=== PATIENT | female | born 1965 | race Caucasian/White ===

== ENCOUNTER 2016-12-09 08:50 | Emergency (ER) | payer MEDICAID ==
[2016-12-09] MEDS ORDERED: KETOROLAC 60 MG/2 ML VIAL IM STA (10:17)
[2016-12-09] MEDS ORDERED: ORPHENADRINE 30 MG/ML 2 ML VIAL IM STA (10:17)
--- NOTE | 2016-12-09 10:23 | ED ---
General Adult HPI - General Chief complaint: Back Pain/Injury Stated complaint: Back pain Time Seen by Provider: 12/09/16 10:00 Source: patient, RN notes reviewed Mode of arrival: ambulatory Limitations: no limitations - History of Present Illness Initial comments: This is a 51-year-old female who presents to the emergency department complaining of lower back pain. Patient states she went to get out of her car today and twisted and then she started having back pain across the lower back both right and left. Patient states she has had this before. Patient denies any numbness weakness. Patient denies any problems lifting her legs. Patient states bending is when the lower back hurts the most. Patient has no urinary symptoms at all. Patient Her back lifting either leg to 90 without causing any problems. Patient denies any blunt trauma or injuries patient denies any heavy lifting that she knows of however her job entails some lifting. - Related Data Home Medications Medication Instructions Recorded Confirmed Fluticasone/Vilanterol [Breo 1 puff INHALATION RT-DAILY 12/09/16 12/09/16 Ellipta 200-25 Mcg INH] Loratadine [Claritin] 10 mg PO DAILY PRN 12/09/16 12/09/16 Montelukast [Singulair] 10 mg PO DAILY 12/09/16 12/09/16 amLODIPine BESYLATE/BENAZEPRIL 1 cap PO DAILY 12/09/16 12/09/16 [amLODIPine BESYLATE/BENAZEPRIL 5-10 mg] Previous Rx's Medication Instructions Recorded Ibuprofen [Motrin] 600 mg PO Q6HR PRN #20 tab 12/09/16 Orphenadrine [Norflex] 100 mg PO Q12H #20 tablet.er 12/09/16 Allergies Allergy/AdvReac Type Severity Reaction Status Date / Time No Known Allergies Allergy Verified 12/09/16 10:04 Review of Systems ROS Statement: Those systems with pertinent positive or pertinent negative responses have been documented in the HPI. ROS Other: All systems not noted in ROS Statement are negative. Past Medical History Past Medical History: Asthma History of Any Multi-Drug Resistant Organisms: None Reported Past Surgical History: Hysterectomy, Tubal Ligation Past Psychological History: No Psychological Hx Reported Smoking Status: Current every day smoker Past Alcohol Use History: Occasional Past Drug Use History: None Reported General Exam - General Exam Comments Initial Comments: GENERAL Patient is well-developed and well-nourished. Patient is in mild distress. EYES Patient's pupils are equal and round. Extraocular motion is intact SKIN Unremarkable NEURO The patient is alert and oriented 3 PYSCH Patient has normal interpersonal interactions. MUSCULOSKELETAL Straight leg test was negative bilaterally. Patient had no numbness or weakness. Patient full range of motion of her extremities. On palpation of her lower back there was minimal tenderness bilaterally with palpation Limitations: no limitations Course Vital Signs 12/09/16 09:11 Temperature 98.0 F Pulse Rate 78 Respiratory 20 Rate Blood Pressure 129/69 O2 Sat by Pulse 98 Oximetry Medical Decision Making - Medical Decision Making I went back into the room patient was already feeling better wanted to be discharged home. Disposition Clinical Impression: Lumbar strain Disposition: HOME SELF-CARE Condition: Good Instructions: Low Back Strain (ED) Prescriptions: Ibuprofen [Motrin] 600 mg PO Q6HR PRN #20 tab PRN Reason: For pain Orphenadrine [Norflex] 100 mg PO Q12H #20 tablet.er Referrals: Jarrod Neely DO [Primary Care Provider] - 1-2 days Time of Disposition: 11:19
[2016-12-09 11:26] VITALS: BP 148/70; PULSE 72; RESP 16; TEMP 97.7
== END 2016-12-09 11:25 | disposition home or self-care (01) ==
LOC: EC 08:50
DX: S39.012A Strain of muscle, fascia and tendon of lower back, initial encounter (principal); J45.909 Unspecified asthma, uncomplicated; F17.200 Nicotine dependence, unspecified, uncomplicated; Z79.51 Long term (current) use of inhaled steroids; Z79.899 Other long term (current) drug therapy; X50.1XXA Overexertion from prolonged static or awkward postures, initial encounter
CPT/HCPCS: 99283; 96372 ×2; J2360; J1885

== ENCOUNTER 2016-12-27 06:49 | Emergency (ER) | payer MEDICAID ==
[2016-12-27] MEDS ORDERED: KETOROLAC 60 MG/2 ML VIAL IM STA (07:59)
--- NOTE | 2016-12-27 08:09 | ED ---
Back Pain HPI - General Chief Complaint: Back Pain/Injury Stated Complaint: Back Pain Time Seen by Provider: 12/27/16 07:52 Source: patient Limitations: no limitations - History of Present Illness Initial Comments: This 51-year-old white female presents with a complaint of some low back pain. She states that initially occurred 3-4 weeks ago but then seemed to resolve. It reoccurred yesterday. She states that she has had decreased sleep this past evening due to the pain. It is worse with certain movements. It did radiate into her right hip. She states that it is in her bilateral lower back. She initially was diagnosed with a lumbar strain. She apparently was prescribed Motrin as well as Flexeril. She has not filled the Motrin as of yet. She denies any injury or trauma. She also followed up with her primary doctor they felt as though it was a lumbar strain. She's been trying back exercises. She denies any problems with her bowels or bladder. She denies any fevers or chills. No other complaints or modifying factors. - Related Data Home Medications Medication Instructions Recorded Confirmed Fluticasone/Vilanterol [Breo 1 puff INHALATION RT-DAILY 12/09/16 12/27/16 Ellipta 200-25 Mcg INH] Loratadine [Claritin] 10 mg PO DAILY PRN 12/09/16 12/27/16 Montelukast [Singulair] 10 mg PO DAILY 12/09/16 12/27/16 amLODIPine BESYLATE/BENAZEPRIL 1 cap PO DAILY 12/09/16 12/27/16 [amLODIPine BESYLATE/BENAZEPRIL 5-10 mg] Previous Rx's Medication Instructions Recorded Ibuprofen [Motrin] 600 mg PO Q6HR PRN #20 tab 12/09/16 Orphenadrine [Norflex] 100 mg PO Q12H #20 tablet.er 12/09/16 Allergies Allergy/AdvReac Type Severity Reaction Status Date / Time No Known Allergies Allergy Verified 12/27/16 07:04 Review of Systems ROS Statement: Those systems with pertinent positive or pertinent negative responses have been documented in the HPI. ROS Other: All systems not noted in ROS Statement are negative. Past Medical History Past Medical History: Asthma Additional Past Medical History / Comment(s): spinal meningitis as History of Any Multi-Drug Resistant Organisms: None Reported Past Surgical History: Hysterectomy, Tubal Ligation Past Psychological History: No Psychological Hx Reported Smoking Status: Current every day smoker Past Alcohol Use History: Occasional Past Drug Use History: None Reported General Exam Limitations: no limitations General appearance: alert, in no apparent distress Extremities exam: Present: normal inspection, full ROM. Absent: tenderness Back exam: Present: normal inspection, tenderness (There is tenderness noted to the bilateral paralumbar musculature. There is no tenderness over the vertebrae. There is pain with certain movements). Absent: CVA tenderness (R) Neurological exam: Present: alert, oriented X3, reflexes normal. Absent: motor sensory deficit Psychiatric exam: Present: normal affect, normal mood Skin exam: Present: intact. Absent: rash Course Vital Signs 12/27/16 07:01 Temperature 98.4 F Pulse Rate 84 Respiratory 16 Rate Blood Pressure 160/76 O2 Sat by Pulse 97 Oximetry Medical Decision Making - Medical Decision Making The patient was seen and examined. She received Toradol 60 mg IM. An x-ray was taken of the lumbar spine. The x-ray showed some mild degenerative changes but no other acute processes. She has not really taken the Flexeril or Motrin 800 as of yet. She is instructed to start taking the medication. She may need an MRI scan as recommended through primary doctor. He states that she will follow-up with him on Thursday. Disposition Clinical Impression: Low back pain, Arthritis, lumbar spine Disposition: HOME SELF-CARE Condition: Good Instructions: Acute Low Back Pain (ED) Additional Instructions: Please take the Motrin and Flexeril as previously prescribed. Referrals: Jarrod Neely DO [Primary Care Provider] - 1-2 days Time of Disposition: 09:07
--- NOTE | 2016-12-27 09:00 | XR ---
EXAMINATION TYPE: XR lumbar spine 2 or 3V DATE OF EXAM ORDERED: 12/27/2016 8:42 AM HISTORY: Pain. COMPARISON: Previous study dated 10/16/2014. FINDINGS: Vertebral body height and alignment are maintained. There is no spondylolysis or spondylol isthesis. There is disc space loss at L5-S1 and to a lesser extent L3-4 and L4-5. There is mild hyper trophic spondylosis at L3-4. The pedicles are intact. IMPRESSION: 1. NO ACUTE OSSEOUS LESION. 2. MILD DEGENERATIVE CHANGE.
[2016-12-27 09:15] VITALS: BP 134/71; PULSE 81; RESP 18; TEMP 97.6
== END 2016-12-27 09:15 | disposition home or self-care (01) ==
LOC: EC 06:49
DX: M46.86 Other specified inflammatory spondylopathies, lumbar region (principal); J45.909 Unspecified asthma, uncomplicated; F17.200 Nicotine dependence, unspecified, uncomplicated; Z79.899 Other long term (current) drug therapy
CPT/HCPCS: 72100; 99283; 96372; J1885

== ENCOUNTER 2017-01-12 11:29 | Emergency (ER) | payer MEDICAID ==
[2017-01-12 12:12] VITALS: BP 128/67; PULSE 82; RESP 18
[2017-01-12 12:35] VITALS: TEMP 98.8
--- NOTE | 2017-01-12 12:35 | ED ---
ENT HPI - General Chief complaint: ENT Stated complaint: POSS NOSE Fx Time Seen by Provider: 01/12/17 12:19 Source: patient, RN notes reviewed Mode of arrival: ambulatory - History of Present Illness Initial comments: Patient is a 51-year-old female chief complaint of falling after tripping over a rug 4 days ago. Patient reports that she landed face first her face hit her floor. Patient reports that she's had some significant swelling over her nose and underneath her eyes. Patient reports that she has chronic sinus congestion and ALLERGY problems. Patient denies any neck pain or loss of consciousness after the injury. Patient reports that she is concerned that she may have possible nasal fracture needs to be seen by ENT specialist. Patient denies any headache, chest pain, shortness of breath, difficulty breathing through the nose. - Related Data Home Medications Medication Instructions Recorded Confirmed Fluticasone/Vilanterol [Breo 1 puff INHALATION RT-DAILY 12/09/16 12/27/16 Ellipta 200-25 Mcg INH] Loratadine [Claritin] 10 mg PO DAILY PRN 12/09/16 12/27/16 Montelukast [Singulair] 10 mg PO DAILY 12/09/16 12/27/16 amLODIPine BESYLATE/BENAZEPRIL 1 cap PO DAILY 12/09/16 12/27/16 [amLODIPine BESYLATE/BENAZEPRIL 5-10 mg] Previous Rx's Medication Instructions Recorded Ibuprofen [Motrin] 600 mg PO Q6HR PRN #20 tab 12/09/16 Orphenadrine [Norflex] 100 mg PO Q12H #20 tablet.er 12/09/16 Amoxic-Pot Clav 875-125Mg 1 tab PO Q12HR #20 tablet 01/12/17 [Augmentin 875-125] Allergies Allergy/AdvReac Type Severity Reaction Status Date / Time No Known Allergies Allergy Verified 01/12/17 12:12 Review of Systems ROS Statement: Those systems with pertinent positive or pertinent negative responses have been documented in the HPI. ROS Other: All systems not noted in ROS Statement are negative. Past Medical History Past Medical History: Asthma Additional Past Medical History / Comment(s): spinal meningitis as History of Any Multi-Drug Resistant Organisms: None Reported Past Surgical History: Hysterectomy, Tubal Ligation Past Psychological History: No Psychological Hx Reported Smoking Status: Current every day smoker Past Alcohol Use History: Occasional Past Drug Use History: None Reported General Exam - General Exam Comments Initial Comments: Pleasant 51-year-old female. No distress. General appearance: alert, in no apparent distress Head exam: Present: atraumatic, normocephalic, normal inspection Eye exam: Present: normal appearance, PERRL, EOMI. Absent: scleral icterus, conjunctival injection, periorbital swelling ENT exam: Present: normal oropharynx, mucous membranes moist, TM's normal bilaterally. Absent: normal exam (Swelling and deformed nasal bridge. bruising underneath bilateral eyes. ) Neck exam: Present: normal inspection. Absent: tenderness, meningismus, lymphadenopathy Respiratory exam: Present: normal lung sounds bilaterally. Absent: respiratory distress, wheezes, rales, rhonchi, stridor Cardiovascular Exam: Present: regular rate, normal rhythm, normal heart sounds. Absent: systolic murmur, diastolic murmur, rubs, gallop, clicks GI/Abdominal exam: Present: soft, normal bowel sounds. Absent: distended, tenderness, guarding, rebound, rigid Extremities exam: Present: normal inspection, full ROM, normal capillary refill. Absent: tenderness, pedal edema, joint swelling, calf tenderness Back exam: Present: normal inspection Neurological exam: Present: alert, oriented X3, CN II-XII intact Psychiatric exam: Present: normal affect, normal mood Skin exam: Present: warm, dry, intact, normal color. Absent: rash Course Vital Signs 01/12/17 01/12/17 12:07 12:35 Temperature 100.9 F H 98.8 F Pulse Rate 82 Respiratory 18 Rate Blood Pressure 128/67 O2 Sat by Pulse 97 Oximetry Medical Decision Making - Medical Decision Making Patient is a 51-year-old female with chief complaint of swelling over her nose and bruising underneath her eyes 4 days after falling and tripping over a rug.Minimal displaced nasal bone fracture as well as nondisplaced fracture of the right nasal bone and the nasal septal fracture anteriorly or. Os pacification of right axillary sinus with mild mucosal thickening in the left maxillary sinus. Patient will be placed on antibiotics and referred to ENT specialist. Patient is that she plan will comply. - Radiology Data Radiology results: report reviewed Minimal displaced nasal bone fracture as well as nondisplaced fracture of the right nasal bone and the nasal septal fracture anteriorly or. Os pacification of right axillary sinus with mild mucosal thickening in the left maxillary sinus. Disposition Clinical Impression: Sinusitis, Nasal bone fracture Disposition: HOME SELF-CARE Condition: Good Instructions: Nasal Fracture (ED) Additional Instructions: Patient advised to completely antibiotics and follow-up with ENT specialist. Return to the emergency department if any alarming signs or symptoms occur. Prescriptions: Amoxic-Pot Clav 875-125Mg [Augmentin 875-125] 1 tab PO Q12HR #20 tablet Referrals: Jarrod Neely DO [Primary Care Provider] - 1-2 days Juan Antonio Starks DO [Doctor of Osteopathic Medicine] - 1-2 days Time of Disposition: 13:43
--- NOTE | 2017-01-12 13:37 | CT ---
EXAMINATION TYPE: CT facial bones wo con DATE OF EXAM: 01/12/2017 1:26 PM COMPARISON: NONE HISTORY: Possible nose fracture. Fall. CT DLP: 660 mGycm Automated exposure control for dose reduction was used. TECHNIQUE: CT scan of the sinuses is performed without contrast, axial images are obtained, coronal r eformatted images are also reviewed. FINDINGS: There appears to be subtle nondisplaced nasal bone fractures present on the right and at th e bridge. Small amount of depression of the distal nasal bones may be present. Subtle septal nasal fr acture is present. Series 4 image 28. There is left septal deviation. Small left vera bullosa is present. There is opacification of the right maxillary sinus. Mild mucosal thickening is within the left maxil tony sinus. Orbital floors as visualized appear intact. The left ostiomeatal unit is patent. The right ostiomeatal unit is obstructed. IMPRESSION: 1. Minimal depressed distal nasal bone fracture as well as nondisplaced fracture of the right nasal b one and nasal septal fracture anteriorly. 2. Opacification of the right maxillary sinus with mild mucosal thickening in the left maxillary sinu s.
== END 2017-01-12 13:52 | disposition home or self-care (01) ==
LOC: EC 11:29
DX: S02.2XXA Fracture of nasal bones, initial encounter for closed fracture (principal); J32.0 Chronic maxillary sinusitis; J45.909 Unspecified asthma, uncomplicated; F17.200 Nicotine dependence, unspecified, uncomplicated; Z79.899 Other long term (current) drug therapy; W01.0XXA Fall on same level from slipping, tripping and stumbling without subsequent striking against object, initial encounter
CPT/HCPCS: 70486; 99283

== ENCOUNTER 2017-03-14 11:20 | Emergency (ER) | payer MEDICAID ==
--- NOTE | 2017-03-14 12:34 | ED ---
General Adult HPI - General Chief complaint: Eye Problems Stated complaint: eyes itchy,dry,watery Time Seen by Provider: 03/14/17 11:40 Source: patient, RN notes reviewed Mode of arrival: ambulatory Limitations: no limitations - History of Present Illness Initial comments: Patient's a 51-year-old female who presents here to the emergency room with a chief complaint of some bilateral eye swelling. She admits that over the last 3 or 4 days she's been having these symptoms. States last night she was outside of the [employer] was working and seemed to increase the swelling. She states that she's been trying some topical creams with little relief. States the skin seems very sensitive and dry. She states she's not had any problems with her eyes themselves. No vision changes no drainage from the eyes. No pain to the eyes. States is some sensitivity to the skin surrounding. She denies any other complaints or symptoms at this time. She admits to seasonal ALLERGIES. States she uses Claritin. Patient denies any recent fever, chills, shortness of breath, chest pain, back pain, abdominal pain, nausea or vomiting, numbness or tingling, dysuria or hematuria, constipation or diarrhea, headaches or visual changes, or any other complaints. - Related Data Home Medications Medication Instructions Recorded Confirmed Loratadine [Claritin] 10 mg PO DAILY PRN 12/09/16 12/27/16 Montelukast [Singulair] 10 mg PO DAILY 12/09/16 03/14/17 amLODIPine BESYLATE/BENAZEPRIL 1 cap PO DAILY 12/09/16 03/14/17 [amLODIPine BESYLATE/BENAZEPRIL 5-10 mg] Fluticasone/Vilanterol [Breo 1 dose INHALATION RT-DAILY 03/14/17 03/14/17 Ellipta 100-25 Mcg Inhaler] Previous Rx's Medication Instructions Recorded Ibuprofen [Motrin] 600 mg PO Q6HR PRN #20 tab 12/09/16 Orphenadrine [Norflex] 100 mg PO Q12H #20 tablet.er 12/09/16 Famotidine [Pepcid] 20 mg PO BID #20 tablet 03/14/17 diphenhydrAMINE [Benadryl] 1 - 2 tab PO Q6HR PRN #30 capsule 03/14/17 predniSONE 40 mg PO DAILY 5 Days 03/14/17 Allergies Allergy/AdvReac Type Severity Reaction Status Date / Time No Known Allergies Allergy Verified 03/14/17 12:18 Review of Systems ROS Statement: Those systems with pertinent positive or pertinent negative responses have been documented in the HPI. ROS Other: All systems not noted in ROS Statement are negative. Past Medical History Past Medical History: Asthma Additional Past Medical History / Comment(s): vertigo spinal meningitis as History of Any Multi-Drug Resistant Organisms: None Reported Past Surgical History: Hysterectomy, Tubal Ligation Past Psychological History: No Psychological Hx Reported Smoking Status: Current every day smoker Past Alcohol Use History: Occasional Past Drug Use History: None Reported General Exam - General Exam Comments Initial Comments: General: The patient is awake and alert, in no distress, and does not appear acutely ill. Eye: Pupils are equal, round and reactive to light, extra-ocular movements are intact. No nystagmus. There is normal conjunctiva bilaterally. No signs of icterus. Ears, nose, mouth and throat: There are moist mucous membranes and no oral lesions. Neck: The neck is supple, there is no tenderness or JVD. Cardiovascular: There is a regular rate and rhythm. No murmur, rub or gallop is appreciated. Respiratory: Lungs are clear to auscultation, respirations are non-labored, breath sounds are equal. No wheezes, stridor, rales, or rhonchi. Musculoskeletal: Normal ROM, no tenderness. Strength 5/5. Sensation intact. Pulses equal bilaterally 2+. Neurological: A&O x 3. CN II-XII intact, There are no obvious motor or sensory deficits. Coordination appears grossly intact. Speech is normal. Skin: Patient does have some swelling around her eyes bilaterally. Skin is mildly red and inflamed. Psychiatric: Cooperative, appropriate mood & affect, normal judgment. Limitations: no limitations Course Vital Signs 03/14/17 11:49 Temperature 98.7 F Pulse Rate 83 Respiratory 20 Rate Blood Pressure 138/83 O2 Sat by Pulse 96 Oximetry Medical Decision Making - Medical Decision Making Patient's symptoms appear to be consistent with ALLERGIC type reaction. Advised to begin using Benadryl Pepcid for her symptoms at this time. Will be given a oral steroid to use if symptoms are not improving or if they increase or worsen. She is advised to follow-up with family doctor or dermatology for further evaluation if there is no improvement or to return here to the emergency room for any other concerns. She states she understands plan and is in agreement. Disposition Clinical Impression: Allergic reaction Disposition: HOME SELF-CARE Condition: Good Instructions: General Allergic Reaction (ED) Additional Instructions: Please use natural and Pepcid as discussed. Please use steroid if symptoms increase. Please follow-up with family doctor in the next 2 days of symptoms have not improved. Please return to emergency room if the symptoms increase or worsen or for any other concerns. Prescriptions: diphenhydrAMINE [Benadryl] 1 - 2 tab PO Q6HR PRN #30 capsule PRN Reason: Allergic Reaction Famotidine [Pepcid] 20 mg PO BID #20 tablet predniSONE 40 mg PO DAILY 5 Days Referrals: Jarrod Neely DO [Primary Care Provider] - 1-2 days Time of Disposition: 12:33
[2017-03-14 12:46] VITALS: BP 118/79; PULSE 77; RESP 18; TEMP 98.5
== END 2017-03-14 12:46 | disposition home or self-care (01) ==
LOC: EC 11:20
DX: T78.40XA Allergy, unspecified, initial encounter (principal); J45.909 Unspecified asthma, uncomplicated; F17.200 Nicotine dependence, unspecified, uncomplicated; Z79.51 Long term (current) use of inhaled steroids; Z79.899 Other long term (current) drug therapy
CPT/HCPCS: 99283

== ENCOUNTER 2021-05-13 04:55 | Emergency (ER) | payer MEDICAID ==
[2021-05-13 05:03] VITALS: TEMP 98.4
[2021-05-13] MEDS ORDERED: FAMOTIDINE 20 MG TAB PO STA (06:06)
[2021-05-13] MEDS ORDERED: dexAMETHasone 2 MG TAB PO STA (06:06)
--- NOTE | 2021-05-13 06:11 | ED ---
Allergic Reaction HPI - General Chief complaint: Allergic Reaction Stated complaint: Allergies Time Seen by Provider: 05/13/21 05:15 Source: patient, RN notes reviewed, old records reviewed Mode of arrival: ambulatory Limitations: no limitations - History of Present Illness Initial Comments: This is a 55-year-old female to the ER today. She presents today for evaluation of eyelid edema and swelling. No shortness of breath and wheezing. Patient wishes having ALLERGIC reaction. Patient did start new lotion. Denies any vision changes no fevers denies any potential bug bite or tick bite. Patient has no significant medical history takes no medications and no prior medications prior to arrival MD Complaint: allergic reaction, facial swelling -: hour(s) Exposure: medication Symptoms: rash, itching, facial swelling Severity: mild Treatment Prior to Arrival: none Previous Allergy History: none - Related Data Home Medications Medication Instructions Recorded Confirmed Loratadine [Claritin] 10 mg PO DAILY PRN 12/09/16 12/27/16 Montelukast [Singulair] 10 mg PO DAILY 12/09/16 03/14/17 amLODIPine BESYLATE/BENAZEPRIL 1 cap PO DAILY 12/09/16 03/14/17 [amLODIPine BESYLATE/BENAZEPRIL 5-10 mg] Fluticasone/Vilanterol [Breo 1 dose INHALATION RT-DAILY 03/14/17 03/14/17 Ellipta 100-25 Mcg Inhaler] Previous Rx's Medication Instructions Recorded Ibuprofen [Motrin] 600 mg PO Q6HR PRN #20 tab 12/09/16 Orphenadrine [Norflex] 100 mg PO Q12H #20 tablet.er 12/09/16 Famotidine [Pepcid] 20 mg PO BID #20 tablet 03/14/17 diphenhydrAMINE [Benadryl] 1 - 2 tab PO Q6HR PRN #30 capsule 03/14/17 predniSONE [Deltasone] 40 mg PO DAILY 5 Days tab 03/14/17 Famotidine [Pepcid] 40 mg PO BID #10 tab 05/13/21 hydrOXYzine HCL [Atarax] 50 mg PO TID #15 tab 05/13/21 predniSONE 50 mg PO DAILY #5 tab 05/13/21 Allergies Allergy/AdvReac Type Severity Reaction Status Date / Time No Known Allergies Allergy Verified 05/13/21 05:02 Review of Systems ROS Statement: Those systems with pertinent positive or pertinent negative responses have been documented in the HPI. ROS Other: All systems not noted in ROS Statement are negative. Past Medical History Past Medical History: Asthma Additional Past Medical History / Comment(s): vertigo spinal meningitis as History of Any Multi-Drug Resistant Organisms: None Reported Past Surgical History: Hysterectomy, Tubal Ligation Past Psychological History: No Psychological Hx Reported Smoking Status: Current every day smoker Past Alcohol Use History: Occasional Past Drug Use History: None Reported General Exam General appearance: alert, in no apparent distress Head exam: Present: atraumatic, normocephalic, normal inspection Eye exam: Present: normal appearance, PERRL, EOMI, periorbital swelling, other (Bilateral periorbital edema). Absent: scleral icterus, conjunctival injection ENT exam: Present: normal exam, mucous membranes moist Neck exam: Present: normal inspection. Absent: tenderness, meningismus, lymphadenopathy Respiratory exam: Present: normal lung sounds bilaterally. Absent: respiratory distress, wheezes, rales, rhonchi, stridor Cardiovascular Exam: Present: regular rate, normal rhythm, normal heart sounds. Absent: systolic murmur, diastolic murmur, rubs, gallop, clicks GI/Abdominal exam: Present: soft, normal bowel sounds. Absent: distended, tenderness, guarding, rebound, rigid Extremities exam: Present: normal inspection, full ROM, normal capillary refill. Absent: tenderness, pedal edema, joint swelling, calf tenderness Back exam: Present: normal inspection Neurological exam: Present: alert, oriented X3, CN II-XII intact Psychiatric exam: Present: normal affect, normal mood Skin exam: Present: warm, dry, intact, normal color. Absent: rash Course Vital Signs 05/13/21 05/13/21 04:59 06:26 Temperature 98.4 F Pulse Rate 92 86 Respiratory 18 19 Rate Blood Pressure 165/89 154/68 O2 Sat by Pulse 98 99 Oximetry - Reevaluation(s) Reevaluation #1: 05/13/21 Medical Record is reviewed Patient symptoms are improved here in the emergency department Patient is informed of results and questions answered Patient is in no acute distress Medical Decision Making - Medical Decision Making 55 female to the ER today for evaluation of ALLERGIC reaction, symptoms included bilateral eyelid edema other complaints no shortness of breath or wheezing. Patient symptoms are improved here in the ER and she can be discharged Disposition Clinical Impression: Allergic reaction, Eyelid edema Disposition: HOME SELF-CARE Condition: Good Instructions (If sedation given, give patient instructions): Urticaria (ED), General Allergic Reaction (ED) Prescriptions: hydrOXYzine HCL [Atarax] 50 mg PO TID #15 tab Famotidine [Pepcid] 40 mg PO BID #10 tab predniSONE 50 mg PO DAILY #5 tab Is patient prescribed a controlled substance at d/c from ED?: No Referrals: Jarrod Neely DO [Primary Care Provider] - 1-2 days
[2021-05-13] MEDS ORDERED: hydrOXYzine HCL 25 MG TAB PO ONE (06:15)
[2021-05-13 06:26] VITALS: BP 154/68; PULSE 86; RESP 19
== END 2021-05-13 06:26 | disposition home or self-care (01) ==
LOC: EC 04:55
DX: T78.40XA Allergy, unspecified, initial encounter (principal); F17.200 Nicotine dependence, unspecified, uncomplicated; J45.909 Unspecified asthma, uncomplicated; Z79.51 Long term (current) use of inhaled steroids
CPT/HCPCS: 99283 ×2; J8540

== ENCOUNTER → 2022-01-23 | Outpatient (CLI) | payer MEDICAID ==
--- NOTE | 2022-01-27 11:45 | MM ---
Reason for exam: screening (asymptomatic). Last mammogram was performed 8 years and 6 months ago. History: Patient is postmenopausal. Family history of breast cancer in sister. Physical Findings: A clinical breast exam by your physician is recommended on an annual basis and results should be correlated with mammographic findings. MG 3D Screening Mammo W/Cad Bilateral CC and MLO view(s) were taken. Prior study comparison: July 21, 2013, bilateral digital screening mammo w/CAD. There are scattered fibroglandular densities. No significant changes when compared with prior studies. ASSESSMENT: Benign, BI-RAD 2 RECOMMENDATION: Routine screening mammogram of both breasts in 1 year.
== END | disposition home or self-care (01) ==
LOC: RADMAMWWP 14:43
PROVIDERS: ATTEND Family Medicine
DX: Z12.31 Encounter for screening mammogram for malignant neoplasm of breast (principal); Z78.0 Asymptomatic menopausal state; Z80.3 Family history of malignant neoplasm of breast
CPT/HCPCS: 77063; 77067

== ENCOUNTER 2022-02-14 06:10 | Day surgery (SDC) | payer MEDICAID ==
[2022-02-13 10:33] VITALS: BMI 29.7
[~2022-02-14 06:10] MED LIST: LACTATED RINGERS 1,000 ML IV SCH; LIDOCAINE 1% (10MG/ML) FOR IV START INTRADERMA PRN
[2022-02-14] MEDS ORDERED: ONDANSETRON 4 MG/2 ML VIAL IVP PRN (07:00)
[2022-02-14 07:37] VITALS: TEMP 97
[2022-02-14] MEDS ORDERED: MIDAZOLAM 2 MG/2 ML VIAL ONE (08:01)
[2022-02-14] MEDS ORDERED: PROPOFOL 10 MG/ML 20 ML VIAL IV ONE (08:01)
[2022-02-14] MEDS ORDERED: fentaNYL (PF) 50 MCG/ML 2 ML AMP ONE (08:01)
--- NOTE | 2022-02-14 08:07 | P.HPIHPCON ---
History of Present Illness H&P Date: 02/14/22 56 year female presents today for colonoscopy. She has recently had a positive cologuard test. She has never had colonoscopy previously. She states that she has had occasional blood in her stool. She denies any abdominal pain. She states that she does have a family history of cancer, however not colon cancer specifically. Consent for Procedure: I have explained the operation/procedure to the patient, including the risks, benefits, side effects, alternative therapies (including not receiving the proposed treatment or service), the likelihood of the patient achieving his/her goals, and potential recuperation problems for the procedure/sedation/analgesia, as well as any blood products, if indicated. I also explained to the patient the risks, benefits and side effects of the alternatives, as well as the risks related to not receiving the proposed procedure, care, treatment, or services. - Review of Systems All systems: negative Past Medical History Past Medical History: Asthma, Hypertension Additional Past Medical History / Comment(s): vertigo, spinal meningitis as History of Any Multi-Drug Resistant Organisms: None Reported Past Surgical History: Hysterectomy, Tubal Ligation Additional Past Anesthesia/Blood Transfusion Reaction / Comment(s): VERTIGO Past Psychological History: No Psychological Hx Reported Additional Psychological History / Comment(s): OCCASIONAL PANIC ATTACKS Smoking Status: Current every day smoker Past Alcohol Use History: Occasional Past Drug Use History: None Reported Medications and Allergies Home Medications Medication Instructions Recorded Confirmed Type Loratadine [Claritin] 10 mg PO DAILY PRN 12/09/16 02/12/22 History amLODIPine BESYLATE/BENAZEPRIL 1 cap PO DAILY 12/09/16 02/12/22 History [amLODIPine BESYLATE/BENAZEPRIL 5-10 mg] Albuterol Inhaler [Ventolin Hfa 1 puff INHALATION RT-TID 02/12/22 02/12/22 History Inhaler] Allergies Allergy/AdvReac Type Severity Reaction Status Date / Time No Known Allergies Allergy Verified 02/12/22 16:05 Surgical - Exam Osteopathic Statement: *. No significant issues noted on an osteopathic structural exam other than those noted in the History and Physical/Consult. Vital Signs Temp Pulse Resp BP Pulse Ox 97 F L 72 20 123/67 96 02/14/22 07:28 02/14/22 07:28 02/14/22 07:28 02/14/22 07:28 02/14/22 07:28 - General well nourished, no distress - Eyes normal ocular movement - Neck trachea midline - Respiratory normal respiratory effort - Abdomen Abdomen: soft, non tender Assessment and Plan Plan: Plan is for colonoscopy secondary to positive cologuard test. Risks, benefits and alternatives were provided to the patient. She did provide consent. Further recommendations after procedure.
--- NOTE | 2022-02-14 08:39 | P.PCN ---
Date of Procedure: 02/14/22 Preoperative Diagnosis: Positive Cologuard Test Postoperative Diagnosis: Sigmoid polyp Inflammatory changes of the cecum Internal hemorrhoids Procedure(s) Performed: Colonoscopy with biopsy and hot snare polypectomy Anesthesia: MAC Surgeon: Kia Rhodes Pathology: other (Sigmoid polyp, cecal inflammation biopsy) Condition: stable Disposition: same day Indications for Procedure: 56-year-old female with recent positive finding on cologuard test. She presents for colonoscopy. Risks, benefits and alternatives were provided. Operative Findings: Large sigmoid polyp Inflammation of the cecum Description of Procedure: The patient was brought into the endoscopy suite and placed in left lateral decubitus position. Adequate sedation was achieved using conscious sedation. A digital rectal exam was performed and internal hemorrhoids were palpated. An endoscope was then placed in the rectum and advanced to the cecum as identified by landmarks including the appendiceal orifice and the ileocecal valve. The prep was fair. The colonoscope was then slowly withdrawn, examining for any mucosal abnormalities. The cecum, ascending, transverse, descending and sigmoid colon were visualized adequately. There were no large neoplastic lesions noted throughout the colon. Some inflammatory changes were noted in the cecum. Biopsies were taken. A large polyp was noted in the sigmoid colon. Hot snare polypectomy was used to remove this polyp. This did measure greater than 1 cm. Hemostasis was maintained. Retroflexion was performed in the rectum and internal hemorrhoids were visible. Excess air was removed, the colonoscope withdrawn and the procedure terminated. The patient was then transferred to the recovery unit in stable condition. Repeat colonoscopy should be performed in 1 year.
[2022-02-14 08:40] VITALS: RESP 16
[2022-02-14 08:54] VITALS: BP 120/66; PULSE 54
== END 2022-02-14 09:13 | disposition home or self-care (01) ==
LOC: ORWHC2ENDO 06:10
PROVIDERS: ATTEND Surgery
DX: D12.0 Benign neoplasm of cecum (principal); D12.5 Benign neoplasm of sigmoid colon; K64.8 Other hemorrhoids
CPT/HCPCS: 45380; 45385; 88305; J2250; J3010; J2704